=== PATIENT | male | born 2005 | race Caucasian/White ===

== ENCOUNTER 2024-07-14 09:47 | Emergency (ER) | payer OTHER ==
[2024-07-14] MEDS: Ketorolac 60 MG/2 ML SDV IM ONE (10:27)
[2024-07-14] MEDS: Lidocaine 4% 1 each Patch TOP PRN (11:45)
== END 2024-07-14 11:50 | disposition home or self-care (01) ==
LOC: MW.ED 09:47
DX: S16.1XXA Strain of muscle, fascia and tendon at neck level, initial encounter (principal); M25.512 Pain in left shoulder; Z75.8 Other problems related to medical facilities and other health care; V49.9XXA Car occupant (driver) (passenger) injured in unspecified traffic accident, initial encounter
CPT/HCPCS: 71045; 71045-26; 72125; 72125-26; 73030-26-LT; 73030-LT; 96372; 99283; 99284; A9270-GY; J1885